=== PATIENT | male | born 1985 | race Hispanic/Latino ===

== ENCOUNTER → 2024-08-08 | Outpatient (CLI) | payer OTHER ==
[2024-08-08 22:20] VITALS: PULSE 94; RESP 14
[2024-08-08 22:33] VITALS: PULSE 96; RESP 14
[2024-08-08 23:05] VITALS: PULSE 64; RESP 12
[2024-08-08 23:28] VITALS: PULSE 86; RESP 18
[2024-08-09] VITALS (11 sets, daily range): PULSE 47–90; RESP 16–22
== END | disposition home or self-care (01) ==
LOC: SLP 20:42
PROVIDERS: ATTEND Nurse Practitioner Family
DX: G47.33 Obstructive sleep apnea (adult) (pediatric) (principal)
CPT/HCPCS: 95810

== ENCOUNTER → 2024-08-15 | Outpatient (CLI) | payer OTHER ==
[2024-08-15] VITALS (15 sets, daily range): PULSE 63–102; RESP 9–33
[2024-08-16] VITALS (11 sets, daily range): PULSE 76–93; RESP 13–24
== END | disposition home or self-care (01) ==
LOC: EDUNIT# 20:30 → SLP 20:37
PROVIDERS: ATTEND Nurse Practitioner Family
DX: G47.33 Obstructive sleep apnea (adult) (pediatric) (principal)
CPT/HCPCS: 95811